=== PATIENT | male | born 1940 | race Caucasian/White ===

== ENCOUNTER 2016-10-03 17:46 | Emergency (ER) | payer MEDICARE, OTHER ==
[2016-10-03 18:16] LABS: BASOPHILS 0.4 % (0.0-2.0); EOSINOPHILS 4.1 % (0.0-6.0); EOSINOPHILS# 0.4 X 10^3uL (0.0-0.4); HEMATOCRIT 44.8 % (42.0-54.0); HEMOGLOBIN 15.5 g/dL (14.0-18.0); LYMPHOCYTES 29.5 % (20.0-40.0); LYMPHOCYTES# 2.8 X 10^3uL (0.8-3.8); MEAN CELL VOLUME 88.7 fL (80.0-100.0); MEAN CORPUS. HGB CONCENTRATION 34.6 g/dL (32.0-36.0); MEAN CORPUSCULAR HEMOGLOBIN 30.7 pg (29.0-35.0); MEAN PLATELET VOLUME 7.7 fL (7.4-10.4); MONOCYTES 8.4 % (2.0-10.0); MONOCYTES# 0.8 X 10^3uL (0.2-1.0); NEUTROPHILS 57.6 % (54.0-75.0); NEUTROPHILS# 5.5 X 10^3uL (2.6-6.7); PLATELET COUNT 226 X 10^3uL (130-440); RED BLOOD COUNT 5.05 X 10^6uL (4.20-6.10); RED CELL DISTRIBUTION WIDTH 12.8 % (11.5-14.5); WHITE BLOOD COUNT 9.5 X 10^3uL (3.9-10.7)
[2016-10-03 18:28] LABS: A/G RATIO 1.4; ALBUMIN 4.4 g/dL (3.5-5.0); ALKALINE PHOSPHATASE 78 U/L (38-126); ALT 35 U/L (21-72); AST 30 U/L (17-59); BILIRUBIN, TOTAL 0.5 mg/dL (0.2-1.3); BLOOD UREA NITROGEN 19 mg/dL (9-20); CALCIUM 9.8 mg/dL (8.4-10.2); CHLORIDE 105 mmol/L (98-107); EST GLOMERULAR FILTRATION RATE > 60 mL/min; GLUCOSE 133 mg/dL (70-100); POTASSIUM 3.3 mmol/L (3.5-5.1); SODIUM 140 mmol/L (137-145); TOTAL PROTEIN 7.6 g/dL (6.3-8.2)
[2016-10-03 18:42] LABS: TROPONIN I < 0.012 ng/mL (0.00-0.034)
--- NOTE | 2016-10-03 19:27 | ER PHYSICIAN DOCUMENTATION ---
Physician Documentation [facility] Name:Felipe Jackson Age:76 yrs Sex:Male :1940 Arrival Date:10/03/2016 Time:17:46 Bed3 Private MD: Andrew Henderson Disposition: 10/05 06:05 Chart complete. tl1 Disposition: 10/03/16 19:00 Discharged to Home/Self Care. Impression: Syncope. - Condition is Good. - Discharge Instructions: SYNCOPE, Vasovagal, Diarrhea - DIARRHEA, Unk Cause (Adult) Report Pendg. - Prescriptions for Zofran 4 mg Oral Tablet - take 1-2 tablet by ORAL route every 4-6 hours As needed; 10 tablet. - Medical Reconciliation form form. - Follow up: Private Physician; When: 4- 6 days; Reason: Recheck today's complaints, Continuance of care. - Problem is new. - Symptoms have improved. - Notes: DRINK PLENTY OF FLUIDS. OK TO TAKE IMMODIUM FOR DIARRHEA, LONG YOU HAVE NO FEVER, BLOOD IN YOUR STOOLS , OR ABDOMINAL PAIN HPI: 10/03 17:50 This 76 yrs old Male presents to ER via Private Vehicle with complaints of tl1 Diarrhea. 17:00 Throughout the day he has had a vague rumbling in his stomach and mild crampy pain. tl1 This evening he went to the theater. While watching the movie the crampy pain got worse. Just [employer] PERSON his noticed that he appeared to be asleep. When she checked further, she thought he had passed out. After a minute or so he came to and walked to the theater lobby under his own power, then was brought here by ambulance. Shortly after arrival in the ED he walked to the toilet and had a large watery stool. No blood. He is now feeling back to his baseline and has no complaints. . - Ebola Screening: : Patient negative for fever greater than or equal to 101.5 degrees Fahrenheit, and additional compatible Ebola Virus Disease symptoms. Patient denies exposure to infectious person. Patient denies travel to an Ebola-affected area in the 21 days before illness onset. No symptoms or risks identified at this time. . ROS: 18:00 Cardiovascular: Negative for chest pain, edema, orthopnea, palpitations, paroxysmal tl1 nocturnal dyspnea. 18:00 Respiratory: Negative for cough, hemoptysis, pleurisy, shortness of breath. 18:00 Abdomen/GI: Positive for diarrhea, abdominal cramps, Negative for vomiting, constipation, abdominal distension, hematemesis, black/tarry stool, rectal bleeding. 18:00 Neuro: Negative for dizziness, headache, seizure activity, speech changes, weakness. Exam: 18:00 Constitutional: The patient appears in no acute distress, alert, awake, comfortable, tl1 non-diaphoretic, non-toxic, well developed, well hydrated, well groomed, well nourished. 18:00 Head/face: Exam is negative for acute changes. 18:00 Eyes: Pupils: equal, round, and reactive to light and accomodation. 18:00 ENT: Exam is negative for acute changes, Mouth: Oral mucosa: pink and intact, moist. 18:00 Neck: ROM/movement: is normal, is supple. 18:00 Cardiovascular: Rate: normal, Rhythm: regular, Heart sounds: normal. 18:00 Respiratory: Respirations: normal, Breath sounds: are normal, no rales, rhonchi, no stridor, no wheezing. 18:00 Abdomen/GI: Bowel sounds: active, Palpation: abdomen is soft and non-tender. 18:00 Musculoskeletal/extremity: Exam is negative for acute changes. 18:00 Skin: Exam negative for acute changes, rash. 18:00 Neuro: Orientation: is normal, Mentation: is normal, Memory: is normal, Cranial nerves: grossly normal, Motor: moves all fours, strength is 5/5 in the right hand, left hand, right foot and left foot. Vital Signs: 17:53 BP 136 / 73 (auto/); sc1 17:59 Pulse 74 MON; Resp 25; Pulse Ox 97% ; sc1 18:27 BP 123 / 73 (auto/); sc1 18:29 Pulse 73 MON; Resp 22; Pulse Ox 93% ; sc1 19:14 BP 145 / 75 (auto/); mk2 19:14 Pulse 77 MON; Resp 23; Pulse Ox 96% ; mk2 MDM: 17:51 Patient medically screened. tl1 18:20 Data reviewed: vital signs, nurses notes, lab test result(s), EKG, and as a result, I tl1 will discharge patient. 19:03 ECG:. tl1 19:10 Response to treatment: the patient's symptoms have resolved after treatment, and as a tl1 result, I will discharge patient. ED course: Asymptomatic after his episode of diarrhea. 19:14 EKG attached [facility] [place] 10/03 18:21 Order name: CBC AUTO DIF, MDIF/RMOR IF IND; Complete Time: 19:03 EDOR 10/03 19:02 Interpretation: WHITE BLOOD COUNT 9.5; HEMOGLOBIN 15.5; HEMATOCRIT 44.8; PLATELET COUNT tl1 226. 10/03 18:32 Order name: DDIMER; Complete Time: 19:03 EDMS 10/03 19:02 Interpretation: Abnormal: DDIMER 783. [facility] 10/03 18:38 Order name: COMPREHENSIVE METABOLIC PANEL; Complete Time: 19:03 EDOR 10/03 19:02 Interpretation: SODIUM 140; POTASSIUM 3.3; CHLORIDE 105; CARBON DIOXIDE 18; GLUCOSE tl1 133; BLOOD UREA NITROGEN 19; CREATININE 1.2. 10/03 18:38 Order name: MAGNESIUM; Complete Time: 19:03 [facility] 10/03 19:02 Interpretation: Normal: MAGNESIUM 2.0. [facility] 10/03 18:43 Order name: BNP,NT-PRO; Complete Time: 19:03 [facility] 10/03 19:02 Interpretation: Abnormal: BNP,NT-PRO 140. [facility] 10/03 18:43 Order name: TROPONIN I; Complete Time: 19:03 [facility] 10/03 19:03 Interpretation: Normal: TROPONIN I < 0.012. [facility] 10/03 17:52 Order name: EKG - 12 Lead; Complete Time: 19:22 tl1 EC:20 Rate is 72 beats/min. Rhythm is regular. QRS [place] is Normal. ND interval is normal at tl1 205 msec. QRS interval is prolonged at 132 msec. QT interval is normal at 489 msec. Q waves are Present in lead III. T waves are Normal. No ST changes noted. Clinical impression: NSR with RBBB. No ischemic changes. Interpreted by me. Reviewed by me. Dispensed Medications: No medications were administered Signatures: Olamide Santos RN RN ak1 Sandy Smyth RN RN 2 Andrew Almendarez MD MD tl1
--- NOTE | 2016-10-03 19:27 | ER NURSING DOCUMENTATION ---
Nurse's Notes [facility] Name:Felipe Jackson Age:76 yrs Sex:Male :1940 Arrival Date:10/03/2016 Time:17:46 Bed3 Private MD: Diagnosis:Syncope Presentation: 10/03 17:59 Presenting complaint: Patient states[place] Pt. was sc1 watching a movie when he became dizzy and states he was unresponsive for 1-2 minutes. Pt. came to and walked to the lobby to get into the ambulance. Transition of care: patient was not received from another setting of care. Notified ED Physician of patient's arrival and CC Dr. Almendarez notified. Care prior to arrival: IV initiated. IV Fluids given by EMS NS 1000 ml. 17:59 Acuity: MARGRET 3 sc1 17:59 Method Of Arrival: Private Vehicle sc1 Triage Assessment: 18:31 General: Appears in no apparent distress, well developed, well nourished, well groomed, sc1 Behavior is cooperative, pleasant. Pain: Denies pain. GI: Reports Pt. had a large diarrhea bowel movement upon arrival and pt. states he feels much better. - Ebola Screening: : Patient negative for fever greater than or equal to 101.5 degrees Fahrenheit, and additional compatible Ebola Virus Disease symptoms. Patient denies exposure to infectious person. Patient denies travel to an Ebola-affected area in the 21 days before illness onset. No symptoms or risks identified at this time. . Screenin:33 Infectious Disease Risk None. Abuse screen: Denies threats or abuse. Nutritional sc1 screening: No deficits noted. Vital Signs: 17:53 BP 136 / 73 (auto/); sc1 17:59 Pulse 74 MON; Resp 25; Pulse Ox 97% ; sc1 18:27 BP 123 / 73 (auto/); sc1 18:29 Pulse 73 MON; Resp 22; Pulse Ox 93% ; sc1 19:14 BP 145 / 75 (auto/); mk2 19:14 Pulse 77 MON; Resp 23; Pulse Ox 96% ; mk2 ED Course: 17:48 Patient arrived in ED. jt 17:51 Andrew Almendarez MD is Attending Physician. tl1 17:59 Olamide Santos RN is Primary Nurse. sc1 18:02 Triage completed. sc1 18:33 Notified ED Physician of patient's arrival and chief complaint. Dr. Almendarez notified. Arm sc1 band placed on Bed in low position Call Light in Reach Gowned HOB Elevated Side rails up x2. EKG done per protocol. Performed by ED Staff. Shown to ED physician. Labs ordered per protocol. Drawn by EMS. 19:14 EKG attached ma1 19:25 Valuables Remains with patient. secured entrance monitor on. Pulse ox on. NIBP on. mk2 19:26 Resting quietly. Dischaged pt for primary RN. mk2 Administered Medications: No medications were administered Outcome: 19:00 Discharge ordered by MD. tl1 19:14 Discharge instructions given to patient, Instructed on discharge instructions, follow mk2 up and referral plans. 19:14 IV D/Alverto 19:24 Discharged to home ambulatory. mk2 19:24 Condition: improved 19:24 Discharge Assessment: Patient awake, alert and oriented x 3. No cognitive and/or functional deficits noted. Patient verbalized understanding of disposition instructions. 19:26 Patient left the ED. 2 10/04 08:37 Discharge F/U Call: Unable to reach: no answer st Signatures: Zoe Bonds, RN RN Olamide Ruby RN RN sc1 Sandy Smyth, RN RN Andrew Vieyra MD MD 1 Maryellen Gambino
== END 2016-10-03 19:27 | disposition home or self-care (01) ==
LOC: ER 17:46
DX: R55 Syncope and collapse (principal); R19.7 Diarrhea, unspecified; I45.10 Unspecified right bundle-branch block; R79.1 Abnormal coagulation profile; Z99.89 Dependence on other enabling machines and devices; Z74.3 Need for continuous supervision
CPT/HCPCS: 80053; 83735; 83880; 84484; 85025; 85379; 93005; 99283; 99284; A0425; A0427